=== PATIENT | female | born 1990 | race Caucasian/White ===

== ENCOUNTER 2025-02-23 16:24 | Emergency (ER) | payer BC, SELFPAY ==
--- OUTSIDE RECORDS SUMMARY | 2022-11-25 07:31 | XMS_ITS | Continuity of Care Document ---
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 Name Role Phone Yolie Hernandez CRNA Unavailable Unavailabl e Allergies, Adverse Reactions, Alerts Substance Reaction Status Criticality No Known Allergies Active No Inform ation Medications Medication Instructions Dosage Effective Dates (start - stop) Status Comments No Drug Therapy Prescribed Procedures Procedure Date Colonoscopy Flex; Dx (nov Pro) 23 Init Inpt Cons New/est Mod-hi 8 Ercp; W/sphincterotomy/papillo Ercp; W/endo Retro Remov Stone 18 Advance Directives Directive Yes / No Effective Date File Name No Information Encounters Encounter Description Practice Location Reason(s) For Visit Diagnoses Date Provider Providers Copied on Encounter [facility], [address] [address], [place], [place], [id number], [place] tel:[phone] [facility] No Information 3 Mary Urbano. [address], [id number], [place]. tel:[phone] Referring Provider: Edwin Gonzalez MD B, [address] [place] [address], [address] . tel:[phone] [facility], [address] [address], [place], [place], [id number], tel:[phone] [facility] GI Symptoms or Concerns (chief complaint) Occult blood in stoolsOther fecal abnormalities Sep-2 3 Carlos Pineda. [address] [facility], [facility] [place] [address], [place], [id number], [place]. tel:[phone] Referring Provider: Moody Chavez, [address] [place], [address] . tel:[phone] [facility] [place], [address] [address], [place], [place], [id number], [place] tel:[phone] [facility] No Information Sep-0 3 Yuriy Huitron. [address] [facility], [facility] [place] [address], [place], [place], [id number], [place]. tel:[phone] Init Inpt Cons New/est Mod-hi [facility], [address] [address], [place], [place], [id number], [place] tel:[phone] [facility] No Information Yury Orantes. [address] [facility], [facility] [place] [address], [place], [place], [id number], [place]. tel:[phone] Referring Provider: Mariusz Celis MD, [address] [place] [address], [address]. tel:[phone] [facility], [address] [address], [place], [place], [id number], [place] tel:[phone] [facility] No Information No Information Referring Provider: Mariusz Celis MD, [address] [place] [address], [address]. tel:[phone] Family History Family Member Type Diagnosis Age At Onset Mother Problem (finding) Alcoholism Father Problem (finding) Cancer, prostate Immunizations Vaccine Date Status Comments Afluria Qd administered Note: [facility] bi-directional interface ; Source: Other Registry SARS-COV-2 (COVID-19) vaccin e, mRNA, spike protein, LNP, preservative free, 100 mcg/0.5mL dose or 50 mcg/0.25mL dose administered Note: [facility] bi -directional interface ; Source: Other Registry Afluria Qd administered Note: [facility] bi-directional interface ; Source: Other Registry SARS-COV-2 (COVID-19) vaccin e, mRNA, spike protein, LNP, preservative free, 30 mcg/0.3mL dose administered Note: [facility] bi-direct ional interface ; Source: Other Registry SARS-COV-2 (COVID-19) vaccin e, mRNA, spike protein, LNP, preservative free, 30 mcg/0.3mL dose administered Note: [facility] bi-direct ional interface ; Source: Other Registry SARS-COV-2 (COVID-19) vaccin e, mRNA, spike protein, LNP, preservative free, 30 mcg/0.3mL dose administered Note: [facility] bi-direct ional interface ; Source: Other Registry tetanus toxoid, reduced diphtheria toxoid, and acellular pertussis vaccine, adsorbed administered Note: [facility] b i-directional interface ; Source: Other Registry Seasonal, quadrivalent, recombinant, injectable influenza vaccine, preservative free administered Note: [facility] bi -directional interface ; Source: Other Registry Influenza administered Note: [facility] bi-d irectional interface ; Source: Other Registry tetanus toxoid, reduced diphtheria toxoid, and acellular pertussis vaccine, adsorbed administered Note: [facility] b i-directional interface ; Source: Other Registry tetanus toxoid, reduced diphtheria toxoid, and acellular pertussis vaccine, adsorbed administered Note: [facility] b i-directional interface ; Source: Other Registry Havrix administered Note: [facility] bi-d irectional interface ; Source: Other Registry varicella virus vaccine administered Note : [facility] bi-directional interface ; Source: Other Registry meningococcal polysaccharide (groups A, C, Y and W-135) diphtheria toxoid conjugate vaccine (MCV4P) administered Note: [facility] bi-direct ional interface ; Source: Other Registry Havrix administered Note: [facility] bi-d irectional interface ; Source: Other Registry hepatitis B vaccine, unspeci fied formulation administered Note: [facility] bi-direct ional interface ; Source: Other Registry diphtheria, tetanus toxoids and pertussis vaccine administered Note: [facility] bi-direct ional interface ; Source: Other Registry measles, mumps and rubella v irus vaccine administered Note: [facility] bi-direct ional interface ; Source: Other Registry hepatitis B vaccine, unspeci fied formulation administered Note: [facility] bi-direct ional interface ; Source: Other Registry hepatitis B vaccine, unspeci fied formulation administered Note: [facility] bi-direct ional interface ; Source: Other Registry Haemophilus influenzae type b vaccine, conjugate unspecified formulation administered Note: [facility] bi-direct ional interface ; Source: Other Registry diphtheria, tetanus toxoids and pertussis vaccine administered Note: [facility] bi-direct ional interface ; Source: Other Registry diphtheria, tetanus toxoids and pertussis vaccine administered Note: [facility] bi-direct ional interface ; Source: Other Registry measles, mumps and rubella v irus vaccine administered Note: [facility] bi-direct ional interface ; Source: Other Registry diphtheria, tetanus toxoids and pertussis vaccine administered Note: [facility] bi-direct ional interface ; Source: Other Registry diphtheria, tetanus toxoids and pertussis vaccine administered Note: [facility] bi-direct ional interface ; Source: Other Registry diphtheria, tetanus toxoids and pertussis vaccine administered Note: [facility] bi-direct ional interface ; Source: Other Registry Payers Payer name Insurance type Covered constitution party ID Authoriza tion(s) [employer] [facility] [id number] Social History Type Description Quantity Date Captured Comments Sex Female Smoking Status No Information Chief Complaint And Reason For Visit No Information Reason For Referral Reason For Referral No Information History Of Present Illness Encounter Date Complaint History Of Prese nt Illness GI Symptoms or Concerns Functional Status Date Functional Assessmen t No Information Medications Administered Medication Instructions Dosage Effective Dates (start - stop) Status Comments No Drug Therapy Prescribed Instructions Date Instruction Additional Infor mation Colon Cancer Prevention Related to Occult blood in stools Assessments Type Assessment Date No Information Patient Care Teams Name Effective Dates (start - stop) Status Members No Information
[2025-02-23 16:27] VITALS: BP 116/74; PULSE 74; RESP 18; TEMP 36.1; O2SAT 99; BMI 30.3
--- NOTE | 2025-02-23 16:58 | ED.GENADULT ---
HPI - General Adult General Time Seen by Provider: 16:59 Date Seen: 02/23/25 Chief complaint: Back Injury/Pain Stated complaint: back pain, tingling hands Time Seen by Provider: 02/23/25 16:44 Source: patient and RN notes reviewed Mode of arrival: ambulatory Limitations: no limitations History of Present Illness HPI narrative: This 34yo female is coming into the ED of her own accord with severe left flank pain that started suddenly around 2pm today at home. She was getting ready to watch the hockey game on T.V.. She turned to plug the heating pad in as she was having menstrual cramps, actually more hunching over forward. She developed pain after that. She tried Tylenol, ibuprofen, heat without any relief. The pain is constant and severe in the left flank area. She felt severe nausea during triage. Notes no fevers or chills, no history of kidney stones. No prior back problems or prior in injury. She did drive herself here. On the drive here, noted her hands felt numb and tingly, on questioning her breathing was rapid due to pain. She has not actually vomited. Her IUD is been in place for few years now, not near the end of the cycle of the IUD. It is a Mirena per report. Over last 6 months, she notes that her periods have become a little bit more regular, they are usually business attorney, usually does not have as significant of cramps. The pain is not in the pelvis, it is in the left flank. She is status post cholecystectomy before. Related Data Home Medications ?Medication ?Instructions ?Recorded ?Confirmed No Known Home Medications 02/23/25 02/23/25 Allergies Allergy/AdvReac Type Severity Reaction Status Date / Time No Known Drug Allergies Allergy Verified 02/23/25 16:35 Review of Systems Status of ROS: Reports: 6 or more systems reviewed and unremarkable except as noted in History and below PFSH PFS Social History Smoking Status: Never smoker How often do you have a drink containing alcohol: monthly or less AUDIT-C Alcohol total score: 1 Non-prescribed substance use: denies use Exam Const: Vital Signs, click to edit/add: Vital Signs - 24 hr 02/23/25 16:27 02/23/25 18:15 02/23/25 21:44 Temperature 97.0 F L 99.0 F Pulse Rate [Pulse Oximeter] 74 76 92 Respiratory Rate 18 18 18 Blood Pressure [Ri ght Upper Arm] 116/74 135/67 129/71 Pulse Oximetry 99 98 98 Oxygen Delivery Me thod Room Air Room Air Room Air This 34-year-old female is alert, interactive, no apparent distress but seems like she is uncomfortable. She is hanging onto an emesis bag. Sclera clear, conjugate gaze, speech normal. Lungs are clear, good air entry, no wheezing or crackles, no tachypnea, no accessory muscle use. She has left CVA tenderness, there is no overlying skin changes. There is no right CVA tenderness in contrast. Abdomen is soft, nontender, nondistended, no organomegaly, rebound or guarding. She mobilizes arms legs, no focal deficit of strength or sensation noted. Documenting provider has reviewed patient's vital signs: yes Course Course ED Course: This 34-year-old female started with severe pain basically after bending forward and turning to plug in her heating pad. She felt like she was having cramping and started noting bleeding today consistent with her menstrual cycle. This certainly could just be musculoskeletal with muscle spasms. I have reviewed with her that I do think we should order noncontrast CT to rule out any underlying kidney stone, consider other potential internal pathology. Will also get labs. Will start with IV Toradol and Zofran for symptom control. She is in agreement. Reevaluation(s) Time of Reevaluation #1: 18:31 Reevaluation #1: Have talked to patient about her imaging, brought a report in. She actually feels like she may not be menstruating. She has only at about 22 days, typically she is at around 30 days. She is only seeing blood when she urinates, that just started today. The cramping has been present a couple days. There is no trauma. Reviewed with her that I talked to the radiologist, we are going to proceed with completing a CT urogram protocol. She has had the noncontrast images done, will need the CT contrast and then the delayed images done. If she needs transfer, [facility] would be best proximity to where she lives but would also consider [facility] if needed as well as [facility]. Her pain did improve with the Toradol but now that we know we have active bleeding, will not give further Toradol. Her pain is worsening again, have ordered morphine. She will be placed on pulse oximetry. I will get type and screen on her. She notes that the blood she saw today was just with urination. She is not getting anything necessary early vaginally. She states she typically will not lead onto a pad or have vaginal bleeding with her menstrual cycles, usually just sees it when she urinates. Time of Reevaluation #2: 19:16 Reevaluation #2: Have been notified by nursing staff that the patient is back from her CT urogram, pain is worse, did vomit. Will give her another 4 mg IV Zofran, 0.5 mg IV Dilaudid. Unclear if the morphine is contributing to the nausea but certainly she is having more pain. We are watching her closely, hopefully will have this CT urogram read shortly. Time of Reevaluation #3: 20:38 Reevaluation #3: Have reviewed the left renal system extravasation, there is some collecting system rupture or injury. She did fall down about 5 stairs about a month ago. Maybe fell on her knees shoveling about 3 weeks ago but nothing recent, no car accidents. Additional Reevaluation(s): 9:02 p.m.: Patient has vomited again. She has received 8 mg of Zofran already since arrival, will order 5 mg IV Compazine. 11:29 p.m.: Patient has been unable to transfer to [facility] due to limitations of EMS at this time. Her pain is increasing, have ordered 0.5 mg IV Dilaudid and then a subsequent 0.2 mg q.2 hours p.r.n.. Hopefully she will transfer soon. Nursing staff notes that the Compazine really helped with her nausea. She remains hemodynamically stable. Consultations Consultation #1: Spoke with Dr. Ramsay from Radiology. We reviewed this. He stated that we should order the urogram protocol. Her non con images will have already been done. He states this is unusual for a patient of this age. 7:48 p.m.: Have talked to Radiology, they called. Radiologist's reading this states due to her hydronephrosis on the left side, there was not contrast uptake. She is recommending repeating a non-con CT right now, see if there is uptake into the ureter due to delayed feeling from her hydronephrosis. The radiology asst is to call the radiologist to confirm that there is contrast in the ureter when they are doing this. I have called our radiology asst and they are aware. I will update the patient. Time: 18:20 Consultation #2: All of [facility] is on 8 hour delay. 8:40 p.m.: Did speak with Gilbert JONES at [facility]. We are sending images, sending a face sheet so they can create a medical number. He is going to see what he might be able to do as far as having urology look at the images. 9:22 p.m.: Gilbert JONES at [facility] called back with urologist Dr. Goodwin. Case was reviewed, there is no kidney stone that is visualized. They will take the patient to the ER at [facility], evaluate there. Patient is updated that she will be seeing Urology in the ER at [facility], she will get the specialty care she needs. They will ultimately decide whether she can be discharged home with outpatient management and urology follow-up verses procedural intervention like stent placement or hospitalization if needed for symptom management. She will no doubt to get the specialty care and advice that she needs which cannot be provided here in our facility. Time: 20:39 Vital Signs Vital signs: Initial Vital Signs Temperature 97.0 F L 02/23/25 16:27 Temperature Source Temporal Artery Scan 02/23/25 16:27 Pulse Rate 74 02/23/25 16:27 Pulse Rhythm Regular 02/23/25 16:27 Respiratory Rate 18 02/23/25 16:27 Blood Pressure 116/74 02/23/25 16:27 Blood Pressure Mean 88 02/23/25 16:27 Blood Pressure Position Sitting 02/23/25 16:27 Pulse Oximetry 99 02/23/25 16:27 Oxygen Delivery Method Room Air 02/23/25 16:27 Vital Signs Temperature 97.0 F L 02/23/25 16:27 Pulse Rate 74 02/23/25 16:27 Respiratory Rate 18 02/23/25 16:27 Blood Pressure 116/74 02/23/25 16:27 Pulse Oximetry 99 02/23/25 16:27 Oxygen Delivery Method Room Air 02/23/25 16:27 Temperature 98.0 F 02/23/25 23:49 Pulse Rate 92 02/23/25 23:49 Respiratory Rate 18 02/23/25 23:49 Blood Pressure 140/80 H 02/23/25 23:49 Pulse Oximetry 98 02/23/25 23:49 Oxygen Delivery Method Room Air 02/23/25 23:49 Medications Administered Medications: Discontinued Medications Generic Name Dose Route Start Last Admin Trade Name Patricia PRN Reason Stop Dose Admin Hydromorphone HCl 0.5 mg 02/23/25 19:15 02/23/25 19:19 Hydromorphone 0.5 Mg/0.5 Ml Inj IVP 02/23/25 19:16 0.5 mg ONCE ONE Administration Hydromorphone HCl 0.5 mg 02/23/25 23:28 02/23/25 23:39 Hydromorphone 0.5 Mg/0.5 Ml Inj IVP 02/23/25 23:29 0.5 mg ONCE ONE Administration Ketorolac Tromethamine 15 mg 02/23/25 17:06 02/23/25 17:21 Ketorolac 15 Mg/Ml Inj IVP 02/23/25 17:07 15 mg ONCE ONE Administration Morphine Sulfate 4 mg 02/23/25 18:26 02/23/25 18:30 Morphine 4 Mg/Ml Inj IVP 02/23/25 18:27 4 mg ONCE ONE Administration Ondansetron HCl 4 mg 02/23/25 17:06 02/23/25 17:22 Ondansetron 2 Mg/Ml Inj IVP 02/23/25 17:07 4 mg ONCE ONE Administration Ondansetron HCl 4 mg 02/23/25 19:15 02/23/25 19:19 Ondansetron 2 Mg/Ml Inj IVP 02/23/25 19:16 4 mg ONCE ONE Administration Prochlorperazine 5 mg 02/23/25 21:01 02/23/25 21:10 Prochlorperazine 5 Mg/Ml Vial IVP 02/23/25 21:02 5 mg ONCE ONE Administration Medical Decision Making Lab Data Labs: Lab Results 02/23/25 02/23/25 02/23/25 Range/Units 17:15 17:31 18:40 WBC 10.00 (4.50-11.00) K/uL RBC 4.69 (4.00-5.20) m/uL Hgb 13.6 (12.0-16.0) gm/dL Hct 39.3 (33.0-51.0) % MCV 84 (80-100) fL MCH 29 (26-34) pg MCHC 35 (32-36) gm/dL RDW Coeff of Chip 11.7 (11.5-15.5) % Plt Count 266 (140-440) K/uL Neut % (Auto) 86.5 H (42.0-72.0) % Lymph % (Auto) 7.8 L (20-44) % [place] % (Auto) 5.3 (0.0-11.0) % Eos % (Auto) 0.2 (0.0-7.0) % Baso % (Auto) 0.1 (0.0-3.0) % Neut # (Auto) 8.70 H (1.7-7.0) K/uL Lymph # (Auto) 0.80 L (0.90-2.90) K/uL [place] # (Auto) 0.50 (0.00-0.90) K/UL Eos # (Auto) 0.02 (0.00-0.50) K/uL Baso # (Auto) 0.01 (0.00-0.30) K/uL Abs Immat Gran (auto) 0.01 (0.00-0.30) K/uL Imm/Tot Granulo (auto) 0.1 % Sodium 136 (135-149) mmol/L Potassium 3.5 L (3.6-5.1) mmol/L Chloride 103 (96-114) mmol/L Carbon Dioxide 22 (20-32) mmol/L Anion Gap 11 (7-15) mEq/L BUN 14 (5-24) mg/dL Creatinine 0.8 (0.5-1.5) mg/dL Estimated Creat Clear 101.60 Estimated GFR 98 ml/min Glucose 155 H (60-115) mg/dL Lactate 2.7 H (0.5-1.9) mmol/L Calcium 9.9 (8.4-10.6) mg/dL Total Bilirubin 0.5 (0.1-1.5) mg/dL AST 35 (12-35) U/L ALT 53 H (4-35) U/L Alkaline Phosphatase 69 (40-150) U/L C-Reactive Protein < 0.5 L (0.5-1.0) mg/dL Total Protein 8.5 H (6.0-8.3) g/dL Albumin 4.8 (3.3-5.0) g/dL Lipase 70 (23-300) U/L Urine Color Brown A (Yellow) Urine Appearance Cloudy A (Clear) Urine pH 8.5 (5.0-8.5) Ur Specific [place] 1.025 (1.000-1.030) Urine Protein 2+ A (Negative) Urine Glucose (UA) Negative (Negative) Urine Ketones Trace A (Negative) Urine Blood 3+ A (Negative) Urine Nitrite Negative (Negative) Urine Bilirubin 1+ A (Negative) Urine Urobilinogen 1.0 (0.2-1.0) Ur Leukocyte Esterase Trace A (Negative) Urine RBC >100 A (0-2) Urine WBC 5-10 A (0-5) Ur Squamous Epith Cells Few (None-Few) Urine Bacteria Few A (None) Blood Type A Positive Antibody Screen NEGATIVE Imaging Data CT scan - abdomen: Attestation: I have reviewed the pertinent imaging results. Radiologist's impression: Patient: ROMAIN HUANG Facility:?[facility] Patient ID:?[id number] Site Patient ID:?[id number]. Site :?[id number] Study:?CT-Abdomen/Pelvis CT A/P WITHOUT-02/23/2025 5:22:30 PM Ordering Physician:Alejo Clark Final Report: INDICATION: Left flank pain. TECHNIQUE: CT abdomen and pelvis without contrast. COMPARISON: None. FINDINGS: Lower chest: Unremarkable. Liver: Normal in size and attenuation. No suspicious masses. Gallbladder and bile ducts: No stones or inflammation. No biliary dilatation. Pancreas: Unremarkable. No mass or inflammation. Spleen: Normal in size. No masses. Adrenal glands: Normal in size. No nodules. Kidneys: There is moderate left-sided hydronephrosis. There is a relatively large amount of echogenic fluid in the left renal pelvis and proximal ureter consistent with blood products. There are also wispy densities external to the ureter consistent with hemorrhage. Right kidney is unremarkable. No current kidney or ureteral stones. GI tract: Unremarkable. Normal in caliber. No sign of mass or inflammation. Normal appendix. Vasculature: Abdominal aorta is normal in caliber. Lymph nodes: No lymphadenopathy. Peritoneum/Abdominal Wall: Unremarkable. No sign of mass or infiltration. No free air or significant free fluid. Pelvis: IUD appears in satisfactory position. A 3.2 cm simple appearing cyst is in the left ovary. Bones: Unremarkable for age. IMPRESSION: 1. Moderate left-sided hydronephrosis which appears secondary to blood clot within the renal pelvis and proximal ureter. There is also evidence of a small amount of hemorrhage external to the proximal ureter. 2. Simple appearing 3.2 cm left ovarian cyst without evidence of rupture. Please note that all CT scans at this facility use dose modulation, iterative reconstruction, and/or weight-based dosing when appropriate to reduce radiation dose to as low as reasonably achievable. Dictated by Wilfrido Ramsay MD @ 02/23/2025 6:12:46 PM (Electronic Signature) CT urogram: Attestation: I have reviewed the pertinent imaging results. Radiologist's impression: Patient: ROMAIN HUANG Facility:?[facility] Patient ID:?[id number] Site Patient ID:?[id number]. Site :?1990 Study:?CT-Abdomen/Pelvis 100CC ISOVUE 370-02/23/2025 7:17:09 PM Ordering Physician:?Francisco Clark Final Report: INDICATION: Left flank pain with blood TECHNIQUE: CT abdomen and pelvis acquired with 100 cc Isovue 370 IV contrast. COMPARISON: Same day CT abdomen and pelvis FINDINGS: Kidneys, ureters and bladder: Compared to earlier today CT abdomen and pelvis, similar appearance of moderate left-sided hydronephrosis with blood products in the renal pelvis and proximal ureter with small amount of hemorrhage external to the proximal ureter. Similar soft tissue stranding about the renal pelvis and upper perinephric kidney. Contrast is only within the calices and not within the left-sided renal pelvis or ureter. Right renal collecting system demonstrates contrast in the pelvis and ureter with no suspicious filling defect. No visualized nephrolithiasis bilaterally. Lower chest: No suspicious pulmonary nodule or consolidation. Liver: Normal in size and attenuation. No suspicious masses. Gallbladder and bile ducts: Cholecystectomy. No intra or extrahepatic biliary ductal dilatation. Pancreas: No ductal dilatation. No mass or inflammation. Spleen: Tiny subcentimeter calcified granulomas. Normal in size. No masses. Adrenal glands: No nodules. GI tract: Stomach is decompressed, limiting evaluation, but appears grossly normal. Small and large bowel is normal in caliber without obstruction. Appendix is not well visualized; however no acute inflammatory signs to suggest acute appendicitis in the right lower quadrant. Vasculature: Abdominal aorta is normal in caliber. Mesenteric arteries are patent. Lymph nodes: No lymphadenopathy. Peritoneum/Abdominal Wall: Small fat containing umbilical hernia. No sign of mass or infiltration. No free air or significant free fluid. Pelvis: Simple cyst in the left ovary measuring 3.2 cm. Bones: No acute fractures. No aggressive appearing lytic or blastic osseous lesions. IMPRESSION: 1. Compared to earlier today CT abdomen and pelvis, similar appearance of moderate left-sided hydronephrosis with blood products in the renal pelvis and proximal ureter with small amount of hemorrhage external to the proximal ureter. No nephrolithiasis. 2. CT urogram images are nondiagnostic of the left kidney as there is no contrast opacification of the renal pelvis or proximal ureter due to delayed nephrogram. Right renal collecting system is unremarkable. 3. simple cyst in the left ovary, as before. No dedicated follow-up needed per [facility] guidelines. These findings were Dr. Singh on February 23 at 7:52 p.m.. If clinically warranted, a repeat noncontrast CT can be performed to evaluate for an appropriate delayed left-sided nephrographic phase. Please note that all CT scans at this facility use dose modulation, iterative reconstruction, and/or weight-based dosing when appropriate to reduce radiation dose to as low as reasonably achievable. Dictated by Hernando Castellanos MD @ 02/23/2025 7:53:02 PM (Electronic Signature) CT- Other: Attestation: I have reviewed the pertinent imaging results. Radiologist's impression: Patient: ROMAIN HUANG Facility:?[facility] Patient ID:?[id number] Site Patient ID:?[id number]. Site :?1990 Study:?CT-Abdomen/Pelvis WITHOUT-02/23/2025 8:04:33 PM Ordering Physician:Alejo Clark Final Report: INDICATION: Evaluate left kidney, previous scan to check for delayed contrast TECHNIQUE: CT abdomen and pelvis without contrast. COMPARISON: Same day CT abdomen and pelvis noncontrast and urogram. FINDINGS: Kidneys: Delayed nephrogram of the left kidney demonstrates contrast extravasation around the left kidney. As before, there is moderate hydronephrosis with a filling defect in the renal pelvis and proximal left ureter with clot in the renal pelvis and soft tissue stranding in the perinephric/proximal periureteral region. No suspicious filling defect in the right renal collecting system or bladder. Right kidney is unremarkable. No other interval change in the remainder of the abdomen or pelvis. IMPRESSION: 1. Delayed nephrogram of the left kidney demonstrates contrast extravasation in the right renal pelvis/ureter consistent with a collecting system injury. 2. As before, there is moderate hydronephrosis with a filling defect in the renal pelvis and proximal ureter and surrounding soft tissue stranding, most compatible with hematoma/inflammation. These findings were discussed with Dr. Singh on February 23, 2025 at 6:17 p.m.. Please note that all CT scans at this facility use dose modulation, iterative reconstruction, and/or weight-based dosing when appropriate to reduce radiation dose to as low as reasonably achievable. Dictated by Hernando Castellanos MD @ 02/23/2025 8:19:54 PM (Electronic Signature) Discharge Plan Discharge Clinical Impression: Rupture of renal pelvis Patient Disposition: [facility] Discharge Location: [facility]
--- NOTE | 2025-02-23 17:07 | CRLHL7_ITS ---
For Patients: As a result of the Century Cures Act, medical imaging exams and procedure reports are released immediately into your electronic medical record. You may view this report before your referring provider. If you have questions, please contact your health care provider. INDICATION: Left flank pain. TECHNIQUE: CT abdomen and pelvis without contrast. COMPARISON: None. FINDINGS: Lower chest: Unremarkable. Liver: Normal in size and attenuation. No suspicious masses. Gallbladder and bile ducts: No stones or inflammation. No biliary dilatation. Pancreas: Unremarkable. No mass or inflammation. Spleen: Normal in size. No masses. Adrenal glands: Normal in size. No nodules. Kidneys: There is moderate left-sided hydronephrosis. There is a relatively large amount of echogenic fluid in the left renal pelvis and proximal ureter consistent with blood products. There are also wispy densities external to the ureter consistent with hemorrhage. Right kidney is unremarkable. No current kidney or ureteral stones. GI tract: Unremarkable. Normal in caliber. No sign of mass or inflammation. Normal appendix. Vasculature: Abdominal aorta is normal in caliber. Lymph nodes: No lymphadenopathy. Peritoneum/Abdominal Wall: Unremarkable. No sign of mass or infiltration. No free air or significant free fluid. Pelvis: IUD appears in satisfactory position. A 3.2 cm simple appearing cyst is in the left ovary. Bones: Unremarkable for age. IMPRESSION: 1. Moderate left-sided hydronephrosis which appears secondary to blood clot within the renal pelvis and proximal ureter. There is also evidence of a small amount of hemorrhage external to the proximal ureter. 2. Simple appearing 3.2 cm left ovarian cyst without evidence of rupture. Please note that all CT scans at this facility use dose modulation, iterative reconstruction, and/or weight-based dosing when appropriate to reduce radiation dose to as low as reasonably achievable. Dictated by Wilfrido Ramsay MD @ 02/23/2025 6:12:46 PM (Electronically Signed)
[2025-02-23 17:21] LABS: Hematocrit* 39.3 % (33.0-51.0); Hemoglobin* 13.6 gm/dL (12.0-16.0); Immature Granulocytes Abs Auto 0.01 K/uL (0.00-0.30); Immature Granulocytes Pct Auto 0.1 %; Mean Corpuscular HGB Conc 35 gm/dL (32-36); Mean Corpuscular Hemoglobin 29 pg (26-34); Mean Corpuscular Volume 84 fL (80-100); RDW Coefficient of Variation % 11.7 % (11.5-15.5); Red Blood Count* 4.69 m/uL (4.00-5.20); White Blood Count* 10.00 K/uL (4.50-11.00)
[2025-02-23 17:22] LABS: Lactate* 2.7 mmol/L (0.5-1.9)
[2025-02-23] MEDS: ONDANSETRON 2 MG/ML inj 4 MG IVP ×2 (17:22→19:19)
[2025-02-23 17:23] LABS: Lymphocytes Absolute Auto 0.80 K/uL (0.90-2.90); Slide Review Reflex No
[2025-02-23 17:40] LABS: Albumin* 4.8 g/dL (3.3-5.0); Chloride* 103 mmol/L (96-114); Potassium* 3.5 mmol/L (3.6-5.1); Sodium* 136 mmol/L (135-149)
[2025-02-23 17:43] LABS: Alanine Aminotransferase* 53 U/L (4-35); Alkaline Phosphatase* 69 U/L (40-150); Anion Gap 11 mEq/L (7-15); Aspartate Amino Transferase* 35 U/L (12-35); Bilirubin Total* 0.5 mg/dL (0.1-1.5); Blood Urea Nitrogen* 14 mg/dL (5-24); Calcium* 9.9 mg/dL (8.4-10.6); Carbon Dioxide* 22 mmol/L (20-32); Creatinine* 0.8 mg/dL (0.5-1.5); Est. Creatinine Clearance* 101.60; Estimated Glomerular Filt Rate 98 ml/min; Glucose* 155 mg/dL (60-115); Total Protein* 8.5 g/dL (6.0-8.3)
[2025-02-23 17:48] LABS: Appearance Urine Cloudy (Clear)
--- OUTSIDE RECORDS SUMMARY | 2025-02-23 18:03 | XMS_ITS | Clinical Summary ---
Author Organization [facility] Address [address] [place] [address] Care Team Providers Care Nursing Clerk Name Role Phone Unavailable Primary Care Provider Unavailabl e Allergies Active AllergyReactionsCriticalityNoted DateCommentsSulfa AntibioticsGI DisturbanceLow Medications MedicationSigDispense QuantityRefillsLast FilledStart DateEnd DateStatus loratadine (CLARITIN) 10 MG tablet Take 10 mg by mouth dailyActive Multiple Vitamins-Minerals (WOMENS MULTI VITAMIN & MINERAL) TABS 1Active SUMAtriptan (IMITREX) 50 MG tablet Indications:Other migraine without status migrainosus, not intractableTake 1 tablet (50 mg) by mouth at onset of headache for migraine May repeat dose in 2 hours. Do notexceed 200 mg in 24 hours 12 tablet ctive Active Problems ProblemNoted DateDiagnosed DateHistory of pre-fxopbzxmh15/06/2022 Overview (11/10/2021): with first Migraine without aura Resolved Problems ProblemNoted DateDiagnosed DateResolved DateEpigastric pain gldjscjbqslb77ARDIOVASCULAR SCREENING; LDL GOAL LESS THAN 09614Knee painatellofemoral radwxisl72/26/2021 Immunizations ImmunizationAdministration DatesNext LueIZVJ6604/14/2007,11/02/2006HIB (PRP-T) 08/20/1989HepB04,02/04/2000,12/29/1999Historical DTP/aP11/04/1992, 09/21/1989,1988,1988,1988Influenza (IIV3) PF02/04/2019MMR (MMRII)02/04/2000,07/19/1989Meningococcal ACWY (Menactra??)11/02/2006OPV, trivalent, live11/04/1992,09/21/1989,1988,1988,1988TD,PF 7+ (Tenivac)02/04/2000TDAP Vaccine (Adacel)04/04/2012Varicella (Varivax)11/02/2006 Family History Medical HistoryRelationCommentsProstate CancerFatherLung CancerMaternal GrandmothersmokerBreast CancerNo family hx ofCerebrovascular DiseaseNo family hx ofColon CancerNo family hx ofCoronary Artery Disease Early OnsetNo family hx of DiabetesNo family hx ofMyocardial InfarctionNo family hx ofOvarian CancerNo family hx ofRelationStatusCommentsFatherMaternal Grandmother Social History Tobacco UseTypesPacks/DayYears UsedDateSmoking Tobacco: NeverSmokeless Tobacco: Never Tobacco Cessation:Counseling Given: No Alcohol UseStandard Drinks/WeekCommentsYes0 (1 standard drink = 0.6 oz pure alcohol)AUDIT-CAnswerDate RecordedQ1: How often do you have a drink containing alcohol?2-4 times a month07/31/2020Q2: How many drinks containing alcohol do you have on a typical day when you are drinking?1 or Q3: How often do you have six or more drinks on one occasion?Never07/31/2020HQ-2AnswerDate Recorded PHQ-2 Mirbq092dolescent EducationAnswerDate RecordedGetting School Help NeededNot on file3CommentsNoSex and Gender InformationValueDate RecordedSex Assigned at ZfvpyKgnfat94/01/2022 8:11 AM CSTLegal SexFemale 01/09/2012 3:06 AM CSTGender YrzwbvsvXpnkxe05/01/2022 8:11 AM CSTSexual YmaqtjoihvqExyfbqbm88/01/2022 8:11 AM CSTOccupationIndustryJob Start DateJob End DateLab TechNot on fileNot on fileNot on file Last Filed Vital Signs Vital SignReadingTime TakenCommentsBlood Bwqwrzpb643/8207/31/2020 3:04 PM CDT Ifpgr070007/31/2020 3:04 PM PXVKngtohqrrth56.1 ??C (97 ??F)07/31/2020 3:04 PM CDT Respiratory Dqzp7286 3:04 PM CDTOxygen Guenxinuts94%07/31/2020 3:04 PM CDTInhaled Oxygen Concentration--Mcwnoj26.8 kg (198 lb)07/31/2020 3:04 PM CDT Qlzxzz451.8 cm (5' 10)07/31/2020 3:04 PM CDTBody Mass Index28.4105 3:04 PM CDT Plan of Treatment Health MaintenanceDue DateLast DoneCommentsANNUAL REVIEW OF HM KMEPUD8507/31/2021 07/31/2020YEARLY PREVENTIVE VISIT, 07/31/2020PAP05/13/2023 05/12/2020, 05/12/2020, 06/05/2017, Additional history existsDIABETES SCREENING /10/2020, 01/22/2018, 01/21/2018, Additional history existsPHQ-2 (once per calendar year)/11/2021, 07/31/2020, 03/14/2019, Additional history existsCOVID-19 VACCINE ( season), 07/16/2020, 06/25/2020, Additional history existsINFLUENZA VACCINE (#1) /, 12/18/2021, 01/05/2021, Additional history exists DTAP/TDAP/TD VACCINE (9 - Td or Tdap), 11/14/2017, 04/04/2012, Additional history existsZOSTER VACCINE (1 of 2)2038HEPATITIS B HTKZVTNWnruwcrbk86/04/2001, 06/08/2000, 02/04/2000, Additional history exists MENINGITIS CHEHJLFGyjbnlmth62/29/2007DVANCE CARE PLANNINGDiscontinuedHEPATITIS C SCREENINGDiscontinuedHIV SCREENINGDiscontinuedHPV VACCINE (No Doses Required) CompletedMIGRAINE ACTION PLANDiscontinuedPNEUMOCOCCAL VACCINE: PEDIATRICS (0 to 5 YEARS) AND AT-RISK PATIENTS (6 to 49 YEARS)Aged OutNo longer eligible based on patient's age to complete this topic Procedures Procedure NamePriorityDate/TimeAssociated DiagnosisCommentsCOMPREHENSIVE METABOLIC RNZJHWavwbdk16/08/2021 8:11 AM CDT Screening for diabetes mellitus PAP SMEAR - HIM PATIENT JZMRKLGTMiozlsn19/01/2018 from Last 3 Months or Most Recently Relevant to Health Maintenance Results * Comprehensive metabolic panel (08/12/2020 8:11 AM CDT)ComponentValueRef Range Test MethodAnalysis TimePerformed AtPathologist CsdnrjdonLelehm758007 - 144 mmol/L08/12/2020 9:15 AM CD[facility] OXBOROPotassium4.03.4 - 5.3 mmol/L08/12/2020 9:15 AM [facility]OROChloride 30266 - 109 mmol/L08/12/2020 9:15 AM [facility] Carbon Hvmyipb9556 - 32 mmol/L08/12/2020 9:19 AM [facility]OROAnion Gap43 - 14 mmol/L08/12/2020 9:19 AM [facility] LDIHPHCctekty1009 - 99 mg/dL08/12/2020 9:19 AM [facility] OX[facility]OROUrea Mqamszde213 - 30 mg/dL08/12/2020 9:19 AM CDT [facility] OXBOROCreatinine0.610.52 - 1.04 mg/dL08/12/2020 9:19 AM [facility] SERVICESOGFR Estimate>90>60 mL/min/{1.73_m2}08/12/2020 9:19 AM [facility] Comment: Non GFR Calc Starting 02/21/2018, serum creatinine based estimated GFR (eGFR) will be calculated using the Chronic Kidney Disease Epidemiology Collaboration (CKD-EPI) equation. GFR Estimate If Black>90>60 mL/min/{1.73_m2}08/12/2020 9:19 AM [facility] OXSOUT[facility] CENTEROComment: GFR Calc Starting 02/21/2018, serum creatinine based estimated GFR (eGFR) will be calculated using the Chronic Kidney Disease Epidemiology Collaboration (CKD-EPI) equation. Calcium8.98.5 - 10.1 mg/dL08/12/2020 9:19 AM [facility] CENTEROBilirubin Total0.20.2 - 1.3 mg/dL08/12/2020 9:23 AM [facility]OUT[facility] CENTEROAlbumin3.73.4 - 5.0 g/dL08/12/2020 9:23 AM [facility]OROProtein Total8.36.8 - 8.8 g/dL08/12/2020 9:23 AM [facility] SERVICESOAlkaline Axghmjgixua1828 - 150 U/L08/12/2020 9:23 AM [facility] IQPSNEDOQ317 - 50 U/L08/12/2020 9:23 AM CDT [facility] SSLVMJLPZ892 - 45 U/L08/12/2020 9:23 AM [facility] OXSOUT[facility]ICAL CENTEROSpecimen (Source)Anatomical Location / Laterality Collection Method / VolumeCollection TimeReceived FcrbCtxsw38/08/2021 8:11 AM CDT08/12/2020 8:12 AM CDT Narrative Authorizing ProviderResult TypeResult StatusCassrekha Tran MDLAB - BLOOD ORDERABLESFinal ResultPerforming OrganizationAddressCity/State/ZIP CodePhone Number [facility] [address] [place] [address] * PAP Smear - HIM Patient Reported (06/05/2017)ComponentValueRef RangeTest MethodAnalysis TimePerformed AtPathologist SignaturePAP Smear - HIM Patient ReportedNegativeEXTERNAL LABSpecimen (Source)Anatomical Location / Laterality Collection Method / VolumeCollection TimeReceived Time06/05/2017 Narrative EXTERNAL LAB - 06/05/2017 Pap smear done on this date: 06/2017 (approximately), by this group: Elliott escalera, results were normal. Authorizing ProviderResult TypeResult StatusPatient ReportedLABORATORYFinal ResultPerforming OrganizationAddressCity/State/ZIP CodePhone Number EXTERNAL LAB External Lab from Last 3 Months or Most Recently Relevant to [place] [address] [place] [address] * Guarantor: Romain Huang TypeRelation to PatientDate of BirthPhone Billing AddressPersonal/TlvzznVcfi28/11/1991 none (Work) [address] [place] [address] Advance Directives For more information, please contact: [phone] * Full Code (Latest Code Status on File) Date ActivatedDate EdkewkfypbxTyqhucid52/16/2018 10:38 AM01/22/2018 7:43 PM QuestionAnswerCommentsCode status determined by:* Discussion with patient/legal decision maker
--- OUTSIDE RECORDS SUMMARY | 2025-02-23 18:03 | XMS_ITS | Clinical Summary ---
Author Organization [facility] Address [address] [place] [address] Care Team Providers Care Tailercpa Name Role Phone [facility] Primary Care Provider Doctors, [place] Unavailable Unavailabl e Allergies No known active allergies Medications MedicationSigDispense QuantityRefillsLast FilledStart DateEnd DateStatus loratadine (CLARITIN ORAL) Take by mouth.Active Multivitamins with Fluoride (MULTI-VITAMIN ORAL) 06/18/2020ctive Bifidobacterium Infantis (Align) cap Take 4 mg by mouth once daily.01/22/2023ctive fluticasone (50 mcg per actuation) nasal solution (FLONASE) Inhale 1 [place] to both nostrils once daily if needed.Active SUMAtriptan (IMITREX) 100 mg tablet Indications:Hx of migrainesTake 1 Tablet (100 mg) by mouth 2 times daily if needed for Migraine. 12 Tablet 11104/15/2023ctive Active Problems ProblemNoted DateDiagnosed DateHistory of arthroscopic knee surgery lateral release Left knee Dr. Roberto Ledezma TCO104/18/2023Hx of izlsrxaar79/10/2024nemia during in third qbibmmmzs40/21/2021Gestational hypertension, third pkatthhkc83/21/2021pontaneous vaginal kwpzneca11/21/2021Obstetrical laceration, second vziket4703/27/2020 Resolved Problems ProblemNoted DateDiagnosed DateResolved DateNSVD (normal spontaneous vaginal delivery)evere preeclampsia, third bicoaalpz59/30/2018 03/27/2020 Immunizations ImmunizationAdministration DatesNext DueCOVID-19 vaccine (Demandware 30mcg/0.3mL) PF, MDV07/16/2020,06/25/2020,1DTP02/04/2000,11/04/1992, 09/21/1989,1988,1988,1988HIB PRP-T (ActHIB,Hiberix)08/20/1989 Hepatitis A (Adult)04/14/2007,11/02/2006Hepatitis A, Icthwwozdtz63/08/2008, 11/02/2006Hepatitis B, Ijkhryxgepo36/04/2001,02/04/2000,12/29/1999Hib Conjugate, Jukddtfuhmu01/16/2000INFLUENZA, IIV3 PF (AGE >= 6 MO)12/14/2023Influenza RIV4 (Age 18+ Years) PRESERV FREE02/18/2019Influenza, IIV3 (Age >=3 years)02/04/2019 Influenza, HJY022/,12/21/2021,01/05/2021Influenza, IIV4 (=>6mos) MDV 11/28/2017MMR104/05/1999,07/19/1989Meningococcal Vaccine (Menactra)11/02/2006Oral Polio Yraquby9311/04/1992,09/21/1989,1988,1988,1988Polio Virus, Ejvstbmvlta06/31/1993,09/21/1989Td (Age >=7 Years)02/04/2000Td, Preservative Free (age >= 7 Years)02/04/2000Tdap1,11/14/2017,04/04/2012Varicella Kamlnbt1111/02/2006 Family History Medical HistoryRelationNameCommentsStrokeBrotherduring - possibly related to AlcoholGood HealthDaughterx 2Cancer-prostateFatherHyperlipidemiaFather? Lung cancerMaternal GrandmothersmokerAlcoholismMotherRelationNameStatusComments BrotherAliveDaughterx 2AliveFatherAliveMaternal GrandfatherDeceasedMaternal GrandmotherDeceasedMotherAlivePaternal GrandfatherDeceasedPaternal Grandmother Social History Tobacco UseTypesPacks/DayYears UsedDateSmoking Tobacco: NeverSmokeless Tobacco: NeverAlcohol UseStandard Drinks/WeekCommentsYes0 (1 standard drink = 0.6 oz pure alcohol)occasionalPHQ-2AnswerDate RecordedPHQ-2 TOTAL VQBUR66404/15/2023Social ConnectionsAnswerDate RecordedDo you often feel lonely or isolated from those around you?Financial Resource StrainAnswerDate RecordedDifficulty of Paying Living Tgrbjojq840ifficulty of Paying Living ExpensesNot on file 02/12/2024Food InsecurityAnswerDate RecordedDo you worry your food will run out before you are able to buy more?Transportation NeedsAnswerDate RecordedDoes lack of transportation keep you from medical appointments?1 04/27/2024Does lack of transportation keep you from work, meetings or getting things that you need?Housing StabilityAnswerDate RecordedWhat is your housing situation today?UtilitiesAnswerDate RecordedDo you have trouble paying for utilities (for example, heat, electricity, water, phone)?1 04/27/2024CommentsNoSex and Gender InformationValueDate RecordedSex Assigned at BirthNot on fileLegal JjdFtqusi34/14/2013 5:49 AM CSTGender Identity Not on fileSexual OrientationNot on fileOccupationIndustryJob Start DateJob End DateLAB TECHNot on fileNot on fileNot on file Obstetrics History GravidaParaTermPretermABIABSABEctopicMultipleLivingLive Mdtbyj50493836306Dzbm OutcomeGATotal LaborLabor/2nd/4kpUesiclYjiLahzFtyaCOQZzaD3Y6MbizUxfg03/06/2018 SAB01/04/20184668Eqdvxkv54i9o8m 05m1.75 kg (3 lb 13.7 oz)KXklGqgggniiQDxiiyz52 BUDIN,BG KALLIELouieDelivery Location:[facility] ([address]) Comments:severe pre-eclampsia- mag, beta, abx03/27/20205115Xtfk22z1m2j 16m6h 04m/0h 09m/0h 03m3.31 kg (7 lb 4.8 oz)FVAGINAL CYWZOaiaaxmuIecaek37 REINA,BG BASIAchmitcookie-Dobbins, Yolanda Vale, MDComplications:NoneDelivery Location:[facility] ([address]) Last Filed Vital Signs Vital SignReadingTime TakenCommentsBlood Tusqqcij749/6302/ 7:59 AM RESIDENTIAL CAREGIVER Ojaqv022704/27/2024 7:59 AM DEAOeyotujhhjb24.7 ??C (98 ??F)04/27/2024 7:59 AM RESIDENTIAL CAREGIVER Respiratory Gcka575603/15/2020 2:36 PM CSTOxygen Zzdhztndvr60%04/27/2024 7:59 AM CSTInhaled Oxygen Concentration--Uiakvh02.4 kg (203 lb 9.6 oz)04/27/2024 7:59 AM CSTWith shoes eoCtkcyq585.3 cm (5' 9)02/13/2024 1:03 PM CSTBody Mass Index30.07 02/13/2024 1:03 PM RESIDENTIAL CAREGIVER Plan of Treatment Health MaintenanceDue DateLast DoneCommentsHepatitis C screening for age 18-79 2006HPV series for age 9-45 (1 - 3-dose SCDM series)2015COVID-19 vaccine series ( season)/, 07/16/2020, 06/25/2020, Additional history existsInfluenza Vaccine (#1)/11/2023, 03/28/2023, 12/21/2021, Additional history existsBMI (ht and wt on same day) for age 18+ , 06/15/2023, 11/04/2022, Additional history exists Depression screening for age 12+, 02/13/2024, 11/05/2022, Additional history existsPap test for age 21-6507003/28/2023 (Completed outside of [facility]), 01/05/2022 (Completed outside of [facility])Tetanus ixyctbo53, 11/14/2017, 04/04/2012, Additional history exists Hepatitis B series for 19+Rgovybrfd55/04/2001, 02/04/2000, 12/29/1999HIV for age 15-53Ipjmgpizr57/03/2020Pneumococcal series for age 6-49Aged OutNo longer eligible based on patient's age to complete this topic Procedures Procedure NamePriorityDate/TimeAssociated DiagnosisCommentsHIV EXTERNALRoutine 08/08/2019 from Last 3 Months or Most Recently Relevant to Health Maintenance Results * HIV EXTERNAL (08/08/2019)ComponentValueRef RangeTest MethodAnalysis Time Performed AtPathologist SignatureEXTERNAL HIVNegativeLABCORPSpecimen (Source) Anatomical Location / LateralityCollection Method / VolumeCollection Time Received TimeBloodBLOOD SPECIMEN / Unknown Narrative Authorizing ProviderResult TypeResult StatusMary Norma Dahling MDLABORATORY Final ResultPerforming OrganizationAddressCity/State/ZIP CodePhone Number [facility] [address] [place] [address] from Last 3 Months or Most Recently Relevant to Health Maintenance Insurance * Guarantor: Pretty Silvestre TypeRelation to PatientDate of BirthPhone Billing AddressWorkers NrudRtnl55/11/[address] [place] [address] Advance Directives * Full Code (Latest Code Status on File) Date ActivatedDate InactivatedComments03/27/2020 9:08 AM03/29/2020 1:11 PMQuestion AnswerCommentsCode Status Discussion:* Not Discussed * Full Code Date ActivatedDate XbrunjozarsVrcjlwgh44/30/2018 4:09 PM01/06/2018 3:05 PM Care Teams Team MemberRelationshipSpecialtyStart DateSelect [facility] [address] [place] [address] PCP - General12/05/15 Doctors [place] 12/05/15
--- OUTSIDE RECORDS SUMMARY | 2025-02-23 18:03 | XMS_ITS | Clinical Summary ---
Author Organization [facility] Address [address], [place] [address] Care Team Providers Care Steel Loader Name Role Phone Mariusz Celis MD Primary Care Provider [phone] Source Comments You are receiving this document as you are listed as the primary care provider,follow-up provider, or the patient has been referred to you for consultation.This is in compliance with the Medicare andMed[facility] Hospitalcaid EHR Incentive Program,which states Providers who transition their patient to another setting of careor provider of care or refers their patient to another provider of care shouldprovide summary care record for each transition of care or referral. [facility] Allergies No known active allergies Medications MedicationSigDispense QuantityRefillsLast FilledStart DateEnd DateStatus naproxen (aka NAPROSYN) tablet Take 1 tablet by mouth 2 times daily (with meals) for 10 days. Indications: PAIN, ARTHRITIS 20 tablet ctive SUMAtriptan (IMITREX) 50 MG tablet Take 50 mg by mouth as needed. May repeat after 2 hours if needed. Max 4 tab/24 hours. Max 9 days/month12/21/2011ctive Norgestimate-Eth Estradiol (MONONESSA) 0.25-35 MG-MCG tablet Take by mouth.12/21/2011ctive cetirizine (ZYRTEC) 10 MG tablet Take 10 mg by mouth daily.Active vitamin-ferrous fumarate-folic acid (PRENATALPLUS) 27-1 MG tablet Take 1 Tab by mouth daily.Active Active Problems No known active problems Social History Tobacco UseTypesPacks/DayYears UsedDateSmoking Tobacco: NeverSmokeless Tobacco: NeverAlcohol UseStandard Drinks/WeekCommentsYes0 (1 standard drink = 0.6 oz pure alcohol)CommentsUnknownSex and Gender InformationValueDate RecordedSex Assigned at BirthNot on fileLegal CikTejdir91/18/2015 4:59 AM CDTGender Identity Not on fileSexual OrientationNot on file Last Filed Vital Signs Vital SignReadingTime TakenCommentsBlood Kxhgauje903/5811 3:27 PM SLEEPER CUTTER Cocqz669301/10/2012 5:07 PM OKROrpxyacmqmz04.6 ??C (97.9 ??F)11/06/2016 12:04 PM CDTRespiratory Tlmx8921 5:14 PM CDTOxygen Saturation--Inhaled Oxygen Concentration--Smrhba33 kg (198 lb 6.4 oz)11/05/2016 5:31 PM YYSCrdrjv318.8 cm (5' 10)11/05/2016 5:31 PM CDTBody Mass Index28.47011/05/2016 5:31 PM CDT Plan of Treatment Health MaintenanceDue DateLast DoneCommentsCervical Cancer Screening Due 1988Hep C Screening (Preventive Services)1988HIV Screening (Preventive Services)2004Adult Preventive Visit2006DTaP/Tdap/Td Vaccine (1 - Tdap)2007HepB Vaccine (1)2007COVID-19 Vaccine (1 - season)2024Influenza Vaccine (#1)2024Zoster/Shingles Vaccine (1 of 2)2038HPV Vaccine (No Doses Required)CompletedHepA VaccineAged OutNo longer eligible based on patient's age to complete this topicHib VaccineAged Out No longer eligible based on patient's age to complete this topicIPV (Polio) VaccineAged OutNo longer eligible based on patient's age to complete this topic MCV4 VaccineAged OutNo longer eligible based on patient's age to complete this topicMeningococcal B VaccineAged OutNo longer eligible based on patient's age to complete this topicPneumococcal VaccineAged OutNo longer eligible based on patient's age to complete this topic Insurance Care Teams Team MemberRelationshipSpecialtyStart DateEnd Date Mariusz Celis MD PCP - GeneralInternal Medicine11/05/16
[2025-02-23 18:15] VITALS: BP 135/67; PULSE 76; RESP 18; O2SAT 98
--- NOTE | 2025-02-23 18:24 | CRLHL7_ITS ---
For Patients: As a result of the Century Cures Act, medical imaging exams and procedure reports are released immediately into your electronic medical record. You may view this report before your referring provider. If you have questions, please contact your health care provider. INDICATION: Left flank pain with blood TECHNIQUE: CT abdomen and pelvis acquired with 100 cc Isovue 370 IV contrast. COMPARISON: Same day CT abdomen and pelvis FINDINGS: Kidneys, ureters and bladder: Compared to earlier today CT abdomen and pelvis, similar appearance of moderate left-sided hydronephrosis with blood products in the renal pelvis and proximal ureter with small amount of hemorrhage external to the proximal ureter. Similar soft tissue stranding about the renal pelvis and upper perinephric kidney. Contrast is only within the calices and not within the left-sided renal pelvis or ureter. Right renal collecting system demonstrates contrast in the pelvis and ureter with no suspicious filling defect. No visualized nephrolithiasis bilaterally. Lower chest: No suspicious pulmonary nodule or consolidation. Liver: Normal in size and attenuation. No suspicious masses. Gallbladder and bile ducts: Cholecystectomy. No intra or extrahepatic biliary ductal dilatation. Pancreas: No ductal dilatation. No mass or inflammation. Spleen: Tiny subcentimeter calcified granulomas. Normal in size. No masses. Adrenal glands: No nodules. GI tract: Stomach is decompressed, limiting evaluation, but appears grossly normal. Small and large bowel is normal in caliber without obstruction. Appendix is not well visualized; however no acute inflammatory signs to suggest acute appendicitis in the right lower quadrant. Vasculature: Abdominal aorta is normal in caliber. Mesenteric arteries are patent. Lymph nodes: No lymphadenopathy. Peritoneum/Abdominal Wall: Small fat containing umbilical hernia. No sign of mass or infiltration. No free air or significant free fluid. Pelvis: Simple cyst in the left ovary measuring 3.2 cm. Bones: No acute fractures. No aggressive appearing lytic or blastic osseous lesions. IMPRESSION: 1. Compared to earlier today CT abdomen and pelvis, similar appearance of moderate left-sided hydronephrosis with blood products in the renal pelvis and proximal ureter with small amount of hemorrhage external to the proximal ureter. No nephrolithiasis. 2. CT urogram images are nondiagnostic of the left kidney as there is no contrast opacification of the renal pelvis or proximal ureter due to delayed nephrogram. Right renal collecting system is unremarkable. 3. simple cyst in the left ovary, as before. No dedicated follow-up needed per SRU guidelines. These findings were Dr. Singh on February 23 at 7:52 p.m.. If clinically warranted, a repeat noncontrast CT can be performed to evaluate for an appropriate delayed left-sided nephrographic phase. Please note that all CT scans at this facility use dose modulation, iterative reconstruction, and/or weight-based dosing when appropriate to reduce radiation dose to as low as reasonably achievable. Dictated by Hernando Castellanos MD @ 02/23/2025 7:53:02 PM (Electronically Signed)
[2025-02-23] MEDS: MORPHINE 4 MG/ML INJ IVP (18:30)
--- NOTE | 2025-02-23 19:52 | CRLHL7_ITS ---
For Patients: As a result of the Cures Act, medical imaging exams and procedure reports are released immediately into your electronic medical record. You may view this report before your referring provider. If you have questions, please contact your health care provider. INDICATION: Evaluate left kidney, previous scan to check for delayed contrast TECHNIQUE: CT abdomen and pelvis without contrast. COMPARISON: Same day CT abdomen and pelvis noncontrast and urogram. FINDINGS: Kidneys: Delayed nephrogram of the left kidney demonstrates contrast extravasation around the left kidney. As before, there is moderate hydronephrosis with a filling defect in the renal pelvis and proximal left ureter with clot in the renal pelvis and soft tissue stranding in the perinephric/proximal periureteral region. No suspicious filling defect in the right renal collecting system or bladder. Right kidney is unremarkable. No other interval change in the remainder of the abdomen or pelvis. IMPRESSION: 1. Delayed nephrogram of the left kidney demonstrates contrast extravasation in the right renal pelvis/ureter consistent with a collecting system injury. 2. As before, there is moderate hydronephrosis with a filling defect in the renal pelvis and proximal ureter and surrounding soft tissue stranding, most compatible with hematoma/inflammation. These findings were discussed with Dr. Singh on February 23, 2025 at 6:17 p.m.. Please note that all CT scans at this facility use dose modulation, iterative reconstruction, and/or weight-based dosing when appropriate to reduce radiation dose to as low as reasonably achievable. Dictated by Hernando Castellanos MD @ 02/23/2025 8:19:54 PM (Electronically Signed)
[2025-02-23] MEDS: PROCHLORPERAZINE 5 MG/ML VIAL IVP (21:10)
[2025-02-23 21:44] VITALS: BP 129/71; PULSE 92; RESP 18; TEMP 37.2; O2SAT 98
[2025-02-23 23:49] VITALS: BP 140/80; PULSE 92; RESP 18; TEMP 36.7; O2SAT 98
== END 2025-02-23 23:50 | disposition short-term general hospital (02) ==
PROVIDERS: Emergency Provider Family Medicine; PCP Physician Assistant Medical
DX: N28.89 Other specified disorders of kidney and ureter (principal); R31.9 Hematuria, unspecified; R11.10 Vomiting, unspecified; N13.30 Unspecified hydronephrosis
CPT/HCPCS: 36415; 74176; 74178; 80053; 81001; 83605; 83690; 85025; 86140; 86850; 86870; 86900; 86901; 87086; 87186; 96374; 96375; 96376; 99285; J0780; J1171; J1885; J2270; J2405; Q9967

== ENCOUNTER 2025-02-23 23:47 | Outpatient (CLI) | payer BC, SELFPAY | END 2025-02-23 23:48 | disposition home or self-care (01) | LOC: AMB 02-27 14:39 | PROVIDERS: PCP Physician Assistant Medical; Visit Provider Family Medicine | DX: S37.06 Major laceration of kidney (principal) | CPT/HCPCS: A0425; A0429 ==